=== PATIENT | female | born 1980 | race Two or more races ===

== ENCOUNTER 2023-11-03 22:44 | Emergency (ER) | payer BC, OTHER ==
[~2023-11-03] VITALS: Ht 167.6 cm; Wt 72.6 kg
[2023-11-03 23:17] VITALS: BP 140/90; TEMP 98.1; O2SAT 98
== END 2023-11-04 | disposition home or self-care (01) ==
LOC: ER 22:46
DX: T50.991A Poisoning by other drugs, medicaments and biological substances, accidental (unintentional), initial encounter (principal); F17.200 Nicotine dependence, unspecified, uncomplicated; F19.10 Other psychoactive substance abuse, uncomplicated; Y92.89 Other specified places as the place of occurrence of the external cause